=== PATIENT | male | born 1990 | race Caucasian/White ===

== ENCOUNTER 2021-01-20 13:28 | Outpatient (RCR) | payer OTHER ==
[~2021-01-20 13:28] MED LIST: FLOMAX0.4 MG PO; NO HOME MEDICATIONS; NORCO 325 MG-51 TAB PO; PHENERGAN 25 TA25 MG PO; VICODIN 5/5001 UDTAB PO; ZOFRAN4 M1 PO
== END 2021-01-21 09:26 | disposition home or self-care (01) ==
LOC: WSOH 13:28
DX: S76.811D Strain of other specified muscles, fascia and tendons at thigh level, right thigh, subsequent encounter (principal); Z98.890 Other specified postprocedural states; Y99.0 Civilian activity done for income or pay